=== PATIENT | male | born 1955 | race Caucasian/White ===

== ENCOUNTER 2020-01-27 12:06 | Emergency (ER) | payer MEDICAID ==
[~2020-01-27] VITALS: Ht 162.6 cm; Wt 61.1 kg
--- NOTE | 2020-01-27 12:14 | NUR ---
PT BIB EMS FOR BLEEDING FROM HIS PENIS AND RECTUM. GROIN AREA IS RED AND SCABBED OVER. PT SCROTUM ALSO SCABBED OVER. PT ESTIMATES HE LOST "ABOUT A HALF A PINT" OR BLOOD. PT RESTING IN GURNEY. ACCOMPANIED BY BROTHER. PT GOT ABOUT 300MLS NS [employer]. PT CONNECTED TO ALL MONITORING EQUIPMENT.
[2020-01-27] MEDS ORDERED: SODIUM CHLORIDE 0.9% 1,000ML IVBOLUS ONE (13:00)
[2020-01-27] MEDS ORDERED: SODIUM CHLORIDE FLUSH 10ML SYR IVF ONE (13:00)
[2020-01-27 13:26] LABS: MICROSCOPIC AUTO
[2020-01-27] MEDS ORDERED: CEFTRIAXONE PMX 1GM/50ML 50 ML ONE (13:47)
[2020-01-27 13:49] LABS: BASOPHILS % (AUTO) 1 % (0-1); EOSINOPHILS % (AUTO) 2 % (1-7); LYMPHOCYTES % (AUTO) 21 % (22-44); MEAN CORPUSCULAR HEMOGLOBIN 28.3 pg (27.5-34.5); MEAN CORPUSCULAR HGB CONC 33.6 g/dL (33.2-36.2); MEAN PLATELET VOLUME 7.5 fL (7.4-10.4); MONOCYTES % (AUTO) 13 % (2-9); NEUTROPHILS % (AUTO) 64 % (42-75); PLATELET COUNT 227 x10^3/uL (130-400); RED BLOOD COUNT 4.99 x10^6/uL (4.38-5.82); RED CELL DISTRIBUTION WIDTH 14.5 % (9.4-14.8)
[2020-01-27 13:54] LABS: MD NO
[2020-01-27] MEDS ORDERED: CEFTRIAXONE PMX 1GM/50ML 50 ML IV ONE (14:00)
[2020-01-27 14:01] LABS: ALANINE AMINOTRANSFERASE 26 U/L (12-78); ALBUMIN 3.5 g/dL (3.4-5.0); ANION GAP 5 mmol/L (5-15); CALCIUM 8.7 mg/dL (8.5-10.1); CHLORIDE 109 mmol/L (98-107); CREATININE 0.93 mg/dL (0.7-1.3)
[2020-01-27 14:04] LABS: ALKALINE PHOSPHATASE 63 U/L (45-117); BILIRUBIN,TOTAL 0.4 mg/dL (0.2-1.0); TOTAL PROTEIN 7.4 g/dL (6.4-8.2)
[2020-01-27 14:17] LABS: INTERNATIONAL NORMALIZED RATIO 0.99 (0.93-1.1); PROTHROMBIN TIME 10.5 Seconds (9.6-11.5)
[2020-01-27] MEDS: ACETAMINOPHEN 500 MG TABLET PO ONE ×2 (14:17→14:57)
--- NOTE | 2020-01-27 14:29 | NUR ---
PT RESTING IN [facility]. NAD. VSS.
--- NOTE | 2020-01-27 14:56 | NUR ---
REPORT TO MARICARMEN LOVE
--- NOTE | 2020-01-27 15:42 | NUR ---
Patient cleaned of incontinence, and repositioned. No needs at this time, will continue to monitor.
[2020-01-27 16:08] VITALS: BP 113/65
== END 2020-01-27 16:25 | disposition home or self-care (01) ==
LOC: ED 15:52
DX: N30.01 Acute cystitis with hematuria (principal); R53.1 Weakness; R19.7 Diarrhea, unspecified; R50.9 Fever, unspecified
CPT/HCPCS: 36415; 71045; 80053; 81001; 83605; 84145; 85025; 85610; 87040; 87077; 87086; 87186; 93005; 96365; 99285; J0696; J7030

== ENCOUNTER 2020-09-17 15:23 | Emergency (ER) | payer MEDICARE, MEDICAID ==
[~2020-09-17] VITALS: Ht 162.6 cm; Wt 60.0 kg
[2020-09-17 15:56] LABS: BASOPHILS % (AUTO) 1 % (0-1); EOSINOPHILS % (AUTO) 1 % (1-7); LYMPHOCYTES % (AUTO) 15 % (22-44); MEAN CORPUSCULAR HGB CONC 33.9 g/dL (33.2-36.2); MEAN PLATELET VOLUME 7.8 fL (7.4-10.4); MONOCYTES % (AUTO) 11 % (2-9); NEUTROPHILS % (AUTO) 73 % (42-75); PLATELET COUNT 206 x10^3/uL (130-400); RED BLOOD COUNT 5.03 x10^6/uL (4.38-5.82); RED CELL DISTRIBUTION WIDTH 14.9 % (9.4-14.8)
--- NOTE | 2020-09-17 15:59 | NUR ---
*PLEASE SEE TRIAGE NOTE BIB [facility] FROM HOME. PT DENIES ANY HI/SI. STATES DIARRHEA. [employer] AT BEDSIDE FOR ASSESSMENT.
[2020-09-17 16:08] LABS: ALANINE AMINOTRANSFERASE 30 U/L (12-78); ALBUMIN 4.1 g/dL (3.4-5.0); ANION GAP 6 mmol/L (5-15); CALCIUM 9.2 mg/dL (8.5-10.1); CHLORIDE 106 mmol/L (98-107); CREATININE 0.96 mg/dL (0.7-1.3)
[2020-09-17 16:11] LABS: SALICYLATE LEVEL < 1.7 mg/dL (2.8-20.0)
[2020-09-17 16:13] LABS: ALKALINE PHOSPHATASE 74 U/L (45-117); BILIRUBIN,TOTAL 0.8 mg/dL (0.2-1.0); TOTAL PROTEIN 7.6 g/dL (6.4-8.2)
--- NOTE | 2020-09-17 16:34 | NUR ---
SW TO SEE PT. PT WILL BE D/C HOME. PT DENIES C/C CURRENTLY, PT WANTING TO GO HOME. MEAL TRAY ORDERED.
[2020-09-17 16:35] VITALS: BP 125/83
--- NOTE | 2020-09-17 16:55 | NUR ---
BENITO FROM AT BEDSIDE FOR ASSESSMENT. US COLLECTED, SENT TO LAB.
[2020-09-17 17:06] LABS: MICROSCOPIC NOT IND
[2020-09-17 17:19] LABS: AMPHETAMINE SCREEN, URINE Negative (Negative); BARBITURATE SCREEN, URINE Negative (Negative); BENZODIAZEPINE SCREEN, URINE Negative (Negative); CANNABINOID SCREEN, URINE Negative (Negative); COCAINE SCREEN, URINE Negative (Negative); METHADONE SCREEN, URINE Negative (Negative); OPIATE SCREEN, URINE Negative (Negative)
--- NOTE | 2020-09-17 17:25 | NUR ---
PT GIVEN MEAL TRAY.
--- NOTE | 2020-09-17 17:54 | NUR ---
PT WILL BE D/C HOME. WILL BE [employer] D/C PER SW.
--- NOTE | 2020-09-17 18:55 | NUR ---
PT RESTING IN BED, [facility] TRANSPORT HOME. MEAL TRAY AT BEDSIDE. REPORT TO SHERRY HERNADEZ.
--- NOTE | 2020-09-17 19:04 | NUR ---
Pt resting in bed comfortably, awaiting transport team discharge. Denies needs
--- NOTE | 2020-09-17 19:15 | NUR ---
Patient/Caregiver given discharge instructions and they have confirmed that they understand the instructions. Patient ambulatory with steady gait. NAD, all questions answered appropriately, denies additional needs at this time. No personal belongings left in room after discharge.
== END 2020-09-17 19:16 | disposition home or self-care (01) ==
LOC: ED 17:38
DX: R19.7 Diarrhea, unspecified (principal); Z72.9 Problem related to lifestyle, unspecified
CPT/HCPCS: 36415; 80053; 80299; 80307; 80320; 80329; 81003; 85025; 99283; G0480